=== PATIENT | male | born 1960 | race Caucasian/White ===

== ENCOUNTER → 2021-07-23 08:02 | Outpatient (CLI) | payer OTHER, SELFPAY ==
--- NOTE | ~2021-07-23 | US_ITS ---
EXAMINATION: US abdomen complete EXAM DATE: 07/23/2021 08:44 INDICATION: Abdominal aorta dilation. TECHNIQUE: Multiple grayscale and Doppler images of the complete abdomen were obtained (by a technolo gist who performed the scan) and subsequently reviewed. There is no prior study for comparison. FINDINGS: The aorta measures 2.8 cm proximally, 2.0 cm mid aspect, 3.8 cm distally, mild ectasia. Scattered mil d aortic arterial sclerosis. Visualized portion IVC is patent. The pancreatic head and body are nor mal in appearance. The pancreatic tail is not visualized. The liver has normal echogenicity and contour. There are no focal liver lesions identified. There is no evidence of intrahepatic biliary duct dilation. Portal venous flow was seen in the hepatopedal , normal direction and has normal Doppler waveform. Common bile duct measures 3 mm, which is normal. The gallbladder wall is normal in thickness, with ex pected amount of distention. No sonographic evidence of pericholecystic fluid. There is no cholelit hiases. Technologist performing exam reports patient did not demonstrate sonographic Rondon's sign. Please note that this sign is less reliable in patients who have received pain medication. Right kidney: There is normal contour and echogenicity. It measures 10.6 x 5.7 x 5.9 centimeters. There are no focal renal lesions identified. There is no hydronephrosis. Left kidney: There is normal contour and echogenicity. It measures 10.6 x 5.5 x 5.2 centimeters. T here are no focal renal lesions identified. Mild left-sided caliectasis probably transient. The spleen measures 9.7 centimeters and is morphologically normal. IMPRESSION: 1. Abdominal aortic arteriosclerosis and ectasia, mildly aneurysmal distally to 3.8 cm. 2. Mild left caliectasis probably transient. Reviewed, dictated and finalized at location A. IMPRESSION: 1. Abdominal aortic arteriosclerosis and ectasia, mildly aneurysmal distally t o 3.8 cm. 2. Mild left caliectasis probably transient.
== END ==
PROVIDERS: PCP Physician Assistant Medical; Visit Provider Physician Assistant Medical
DX: I71.4 Abdominal aortic aneurysm, without rupture (principal); I70.0 Atherosclerosis of aorta
CPT/HCPCS: 76700

== ENCOUNTER 2023-02-28 09:32 | Emergency (ER) | payer OTHER, SELFPAY ==
--- NOTE | ~2023-02-28 | XR_ITS ---
EXAMINATION: XR finger 5th LT min 2V INDICATION: Left fifth finger pain, initial encounter TECHNIQUE: Three views of the left fifth finger are obtained on four radiographs. COMPARISON: None available FINDINGS: There appears to be an oblique intra-articular fracture at the medial base of the fifth mid dle phalanx. Soft tissue swelling surrounds the fracture. No additional acute fracture is identified. 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 IMPRESSION: 1. Possible fracture at the lateral base of the fifth middle phalanx. Correlate for tenderness at thi s site. Reviewed, dictated and finalized at location A. IMPRESSION: 1. Possible fracture at the lateral base of the fifth middle phalanx. Correlate for tenderness at this site.
[2023-02-28 09:48] VITALS: BP 145/67; PULSE 72; RESP 18; TEMP 36.4; O2SAT 98
--- NOTE | 2023-02-28 10:05 | ED.GENADULT ---
HPI - General Adult General Chief complaint: Extremity Injury, Upper Stated complaint: finger injury(lt hand) Time Seen by Provider: 02/28/23 10:05 Source: patient Mode of arrival: ambulatory Limitations: no limitations History of Present Illness HPI narrative: 63-year-old male patient presents to the [facility] with complaints of left hand pinky finger pain. Patient states he was cleaning out his should yesterday and tripped and fell forward using his left hand to brace his fall and felt pain to the left pinky finger. Patient states he has not been able to straighten it out all the way since then. Patient has been taking Tylenol ibuprofen for pain. Patient states he has to iced it 1 time Related Data Home Medications Medication Instructions Recorded Confirmed olmesartan 20 mg tablet 20 mg PO DAILY 02/28/23 02/28/23 Allergies Allergy/AdvReac Type Severity Reaction Status Date / Time No Known Allergies Allergy Verified 02/28/23 10:01 Review of Systems Review of Systems: CONSTITUTIONAL: Denies fever, chills, or sweats. EYES: Denies visual changes, redness, or discharge. ENT: Denies rhinorrhea, congestion, sore throat, or otalgia. CARDIOVASCULAR: Denies chest pain, palpitations, or edema. RESPIRATORY: Denies cough or dyspnea. GASTROINTESTINAL: Denies abdominal pain, nausea, vomiting, or diarrhea. GENITOURINARY: Denies dysuria or hematuria. SKIN: Denies rash or itching. MUSCULOSKELETAL: Denies back pain, joint pain, or myalgia. positive left hand pinky finger pain NEUROLOGIC: Denies headache, numbness, or weakness. PSYCHIATRIC: Denies anxiety or depression. [facility] Past Medical History Medical History (Updated 02/28/23 @ 10:35 by TRENTON Lindquist) Arthritis Hypertension Pilonidal cyst with abscess Traumatic partial tear of right biceps tendon history of repair Surgical History Surgical History (Updated 02/28/23 @ 10:06 by TRENTON Lindquist) H/O vasectomy History of orthopedic surgery Family History Family History Mother Diabetes mellitus Sibling Diabetes mellitus Father Family history of cardiovascular disease Social History Social History Smoking status: Current every day smoker Alcohol intake: never Comments At the time of my signature I agree with nursing past medical history, surgical, social, and family history. There is no relevant family history pertinent to the presenting complaint. Exam Narrative: GENERAL: Well-appearing, well-nourished, and in no acute distress. HEAD: Normocephalic, atraumatic. EYES: PERRLA and EOMI. ENT: Nares clear, no rhinorrhea or epistaxis. Mucous membranes moist. NECK: Supple. No lymphadenopathy CHEST: Clear to auscultation. No respiratory distress. HEART: Regular rate and rhythm. No murmur heard. Normal peripheral pulses. ABDOMEN: Soft, nontender, nondistended, normal active bowel sounds. EXTREMITIES: Normal range of motion. No edema. patient has slight redness with no warmth and tenderness noted at the base of the left 5th PIP joint. It does appear that patient has obvious deformity of the pinky finger and regards to that he is not able to straighten it out all the way as the rest of the fingers. Patient has 2+ radial pulses that are strong. SKIN: Warm, dry, no rash. NEURO: No focal deficits. Alert and oriented x3. Course Course Level of Care: Express Care Visit Vital Signs Vital signs: Vital Signs Temperature 36.4 C L 02/28/23 09:48 Pulse Rate 72 02/28/23 09:48 Respiratory Rate 18 02/28/23 09:48 Blood Pressure 145/67 H 02/28/23 09:48 Pulse Oximetry 98 02/28/23 09:48 Oxygen Delivery Room Air 02/28/23 09:48 Temperature 36.4 C L 02/28/23 09:48 Pulse Rate 72 02/28/23 09:48 Respiratory Rate 18 02/28/23 09:48 Blood Pressure 145/67 H 02/28/23 09:48 Pulse Oximetry 98 02/28/23 09:48 Oxygen Deliv
== END 2023-02-28 10:44 | disposition home or self-care (01) ==
PROVIDERS: Emergency Provider Nurse Practitioner Family; PCP Physician Assistant Medical
DX: S62.607A Fracture of unspecified phalanx of left little finger, initial encounter for closed fracture (principal); W01.0XXA Fall on same level from slipping, tripping and stumbling without subsequent striking against object, initial encounter; F17.200 Nicotine dependence, unspecified, uncomplicated; Z98.52 Vasectomy status; M19.90 Unspecified osteoarthritis, unspecified site; I10 Essential (primary) hypertension
CPT/HCPCS: 29130; 73140; 99214; G0463